=== PATIENT | female | born 1995 | race American Indian/Alaskan Native ===

== ENCOUNTER 2020-02-13 01:03 | Emergency (ER) | payer MEDICAID ==
[2020-02-13 03:03] LABS: Basophils # (Auto) 0.1 K/mm3 (0.0-0.1); Basophils % (Auto) 0.6 % (0.0-1.8); Eosinophils # (Auto) 0.1 K/mm3 (0.0-0.4); Eosinophils % (Auto) 1.2 % (0.0-4.3); Hematocrit 40.4 % (30.3-42.9); Hemoglobin 13.7 gm/dl (10.1-14.3); Lymphocytes # (Auto) 3.7 K/mm3 (1.2-5.4); Lymphocytes % (Auto) 33.9 % (13.4-35.0); Mean Corpuscular HGB Conc 34 % (30-34); Mean Corpuscular Volume 91 fl (79-97); Monocytes # (Auto) 0.8 K/mm3 (0.0-0.8); Monocytes % (Auto) 7.7 % (0.0-7.3); Platelet Count 320 K/mm3 (140-440); Red Blood Count 4.45 M/mm3 (3.65-5.03); Red Cell Distribution Width 14.9 % (13.2-15.2)
--- NOTE | 2020-02-13 03:40 | Ultrasound Report ---
ULTRASOUND OBSTETRIC INDICATION / CLINICAL INFORMATION: vaginal bleeding. Clinical Gestational Age (GA) in weeks, days: Approximately 8 weeks by dates TECHNIQUE: Transabdominal. COMPARISON: None available. FINDINGS: GESTATIONAL SAC: Well-defined oval shape and intrauterine in location. Sac measures approximately 13 x 12 mm. No pole or yolk sac is identified at this time. ADNEXA: Neither ovary could be identified. No obvious adnexal mass. FREE FLUID: None. ADDITIONAL FINDINGS: None. IMPRESSION: 1. Small round fluid collection is seen within the uterus. This is most likely an early gestational s ac, but without confirmation of yolk sac or pole, is not confirmed. If fluid collecti on is a gestational sac, estimated gestational age would be 6 weeks 0 days. 2. Neither ovary could be identified due to overlying bowel gas. Signer Name: Vera Tejada MD Signed: 02/13/2020 3:35 AM Workstation Name: [id number]
[2020-02-13] MEDS ORDERED: ACETAMINOPHEN 500 MG TAB PO ONE (04:30)
[2020-02-13 05:36] LABS: Bacteria,Urine 1+ /HPF (Negative); Bilirubin,Urine NEG (Negative); Blood,Urine SM (Negative); Color,Urine Yellow (Yellow); Mucus,Urine FEW /HPF; Protein,Urine <15 mg/dL mg/dL (Negative); Urobilinogen,Urine < 2.0 mg/dL (<2.0)
--- NOTE | 2020-02-13 05:48 | Emergency Department Report ---
ED Female HPI - General Chief complaint: Vaginal Bleeding Stated complaint: 7 WEEKS /BLEEDING Source: patient Mode of arrival: Ambulatory Limitations: No Limitations - History of Present Illness Initial comments: Patient is a A0 24-year-old female who is approximately 7 weeks gestation and who presents to the ED with complaint of acute onset persistent suprapubic pain and vaginal bleeding for the last 8 hours. Patient states that the bleeding was initially very heavy but has since changed to spotting. Patient denies heavy lifting, traumatic injury, fall, dysuria, urinary frequency and urgency, dyspareunia, vaginal discharge, fever, chills, cough, chest pain, shortness of breath, headache, lightheadedness, nausea and vomiting. MD Complaint: vaginal bleeding, pelvic pain -: Sudden, hour(s) (8) Location: suprapubic, other (vaginal ) Radiation: non-radiating Severity: severe Severity scale (0 -10): 7 Quality: cramping, sharp, aching Consistency: constant Improves with: none Worsens with: none Are you Now?: Yes (Approxi 7 weeks gestation) Associated Symptoms: denies other symptoms, vaginal bleeding, abdominal pain. denies: vaginal discharge, nausea/vomiting, fever/chills, headaches, loss of appetite, dysuria, hematuria, rash, seizure, shortness of breath, syncope, weakness - Related Data Sexually active: Yes : 1 Para: 0 A: 0 Previous Rx's Medication Instructions Recorded Last Taken Type Acetaminophen [Tylenol] 500 mg PO Q6HR PRN #30 tablet 02/13/20 Unknown Rx Allergies Allergy/AdvReac Type Severity Reaction Status Date / Time No Known Allergies Allergy Unverified 02/13/20 02:11 ED Review of Systems ROS: Stated complaint: 7 WEEKS /BLEEDING Other details as noted in HPI Constitutional: denies: chills, fever Eyes: denies: eye pain, eye discharge, vision change ENT: denies: ear pain, throat pain Respiratory: denies: cough, shortness of breath, wheezing Cardiovascular: denies: chest pain, palpitations Endocrine: no symptoms reported Gastrointestinal: abdominal pain (Suprapubic pain). denies: nausea, diarrhea Genitourinary: abnormal menses (Vaginal bleeding). denies: urgency, dysuria, discharge Musculoskeletal: denies: back pain, joint swelling, arthralgia Skin: denies: rash, lesions Neurological: denies: headache, weakness, paresthesias Psychiatric: denies: anxiety, depression Hematological/Lymphatic: denies: easy bleeding, easy bruising ED Past Medical Hx - Past Medical History Previous Medical History?: No - Surgical History Past Surgical History?: No - Social History Smoking Status: Never Smoker Substance Use Type: None - Medications Home Medications: Home Medications Medication Instructions Recorded Confirmed Last Taken Type Acetaminophen [Tylenol] 500 mg PO Q6HR PRN #30 tablet 02/13/20 Unknown Rx ED Physical Exam - General Limitations: No Limitations General appearance: alert, in no apparent distress - Head Head exam: Present: atraumatic, normocephalic, normal inspection - Eye Eye exam: Present: normal appearance, PERRL, EOMI Pupils: Present: normal accommodation - ENT ENT exam: Present: normal exam, normal orophraynx, mucous membranes moist, TM's normal bilaterally, normal external ear exam - Neck Neck exam: Present: normal inspection, full ROM - Respiratory Respiratory exam: Present: normal lung sounds bilaterally. Absent: respiratory distress, wheezes, rales, rhonchi, chest wall tenderness, accessory muscle use, decreased breath sounds, prolonged expiratory - Cardiovascular Cardiovascular Exam: Present: regular rate, normal rhythm, normal heart sounds. Absent: systolic murmur, diastolic murmur, rubs, gallop - GI/Abdominal GI/Abdominal exam: Present: soft, normal bowel sounds. Absent: tenderness, guar ding, hyperactive bowel sounds, hypoactive bowel sounds - Bi-manual exam: Present: other (Pelvic exam declined) - Extremities Exam Extremities exam: Present: normal inspection, full ROM, normal capillary refill - Back Exam Back exam: Present: normal inspection, full ROM. Absent: tenderness, CVA tenderness (R), CVA tenderness (L), muscle spasm, paraspinal tenderness, vertebral tenderness - Neurological Exam Neurological exam: Present: alert, oriented X3, CN II-XII intact, normal gait, reflexes normal - Psychiatric Psychiatric exam: Present: normal affect, normal mood - Skin Skin exam: Present: warm, dry, intact, normal color. Absent: rash ED Course Vital Signs 02/13/20 02:01 Temperature 98.1 F Pulse Rate 71 Respiratory 16 Rate Blood Pressure 117/69 O2 Sat by Pulse 98 Oximetry ED Medical Decision Making - Lab Data Result diagrams: 02/13/20 02:38 - Radiology Data Radiology results: report reviewed, image reviewed Findings [facility] [address] [place] [address] Ultrasound Report Signed Patient: BELLE LOPEZ MR#: [id number] : 1995 Acct:[id number] Age/Sex: 24 / F ADM Date: 02/13/20 Loc: ED Attending Dr: Ordering Physician: ALEJANDRA WICK MD Date of Service: 02/13/20 Procedure(s): US OB <= 14 wk fetus add gest Accession Number(s): [id number] cc: ALEJANDRA WICK MD ULTRASOUND OBSTETRIC INDICATION / CLINICAL INFORMATION: vaginal bleeding. Clinical Gestational Age (GA) in weeks, days: Approximately 8 weeks by dates TECHNIQUE: Transabdominal. COMPARISON: None available. FINDINGS: GESTATIONAL SAC: Well-defined oval shape and intrauterine in location. Sac measures approximately 13 x 12 mm. No pole or yolk sac is identified at this time. ADNEXA: Neither ovary could be identified. No obvious adnexal mass. FREE FLUID: None. ADDITIONAL FINDINGS: None. IMPRESSION: 1. Small round fluid collection is seen within the uterus. This is most likely an early gestational sac, but without confirmation of yolk sac or pole, is not confirmed. If fluid collection is a gestational sac, estimated gestational age would be 6 weeks 0 days. 2. Neither ovary could be identified due to overlying bowel gas. Signer Name: Vera Tejada MD Signed: 02/13/2020 3:35 AM Workstation Name: [id number] Transcribed By: JR Dictated By: Vera Tejada MD Electronically Authenticated By: Vera Tejada MD Signed Date/Time: 02/13/20334 DD/ 1 TD/TT: - Medical Decision Making This is a A0 24-year-old female who is approximately 7 weeks gestation and who presents to the ED with complaint of acute onset persistent suprapubic pain and vaginal bleeding for the last 8 hours. Patient states that the bleeding was initially very heavy but has since changed to spotting. In the ED, patient is alert and oriented x3 and is not in distress. Patient was treated for pain in the ED with Tylenol. Lab test results were reviewed and showed hCG quant of 9728.0 and the rest of the lab test results were nonactionable. Transvaginal ultrasound showed a small round fluid collection within the uterus. This is most likely an early gestational sac, but without confirmation of yolk sac or pole, is not confirmed. If fluid collection is a gestational sac, estimated gestational age would be 6 weeks 0 days. It also showed that neither ovary could be identified due to overlying bowel gas. On reevaluation, patient's pain is well controlled with medication. Patient was discharged home and advised to maintain a complete pelvic rest, and to take pain medication, Tylenol, as needed and follow-up with [facility] physician or return to the ED within 48 hours for serial hCG quant studies recheck to confirm the viability of the . Patient verbalized understanding and agree with the plan of care. Patient was otherwise advised to return to the ED immediately if symptoms get worse. - Differential Diagnosis Threatened miscarriage; Ovarian cyst; Subchorionic bleed; UTI Critical care attestation.: If time is entered above; I have spent that time in minutes in the direct care of this critically ill patient, excluding procedure time. ED Disposition Clinical Impression: Threatened miscarriage in early , Abdominal pain during in first trimester, Vaginal bleeding in patient after first trimester Disposition: DC-01 TO HOME OR SELFCARE Is pt being admited?: No Does the pt Need Aspirin: No Condition: Stable Instructions: Abdominal Pain During , [id number], Vaginal Bleeding During , First Trimester, [id number] Additional Instructions: Take Tylenol as needed for pain, maintain a complete pelvic rest with no physical or strenuous or sexual activities. Return to the ED or to your [facility] physician within 48 hours for serial hCG repeat test to ascertain the viability of the . Otherwise return to the ED immediately if symptoms get worse. Prescriptions: Acetaminophen [Tylenol] 500 mg PO Q6HR PRN #30 tablet PRN Reason: Pain , Severe (7-10) Referrals: PRIMARY CARE, [Primary Care Provider] - 3-5 Days Forms: Work/School Release Form(ED) Time of Disposition: 05:56 Print Language: [place]OT[place]
[2020-02-13 06:25] VITALS: BP 120/72
== END 2020-02-13 06:15 | disposition home or self-care (01) ==
LOC: ED 01:03
DX: O20.9 Hemorrhage in early pregnancy, unspecified (principal); O26.891 Other specified pregnancy related conditions, first trimester; O20.0 Threatened abortion; R10.9 Unspecified abdominal pain; Z3A.01 Less than 8 weeks gestation of pregnancy; Z79.899 Other long term (current) drug therapy
CPT/HCPCS: 36415; 76801; 76802; 81001; 84702; 85025; 86900; 86901